=== PATIENT | female | born 1945 | race Hispanic/Latino ===

== ENCOUNTER 2016-12-22 10:53 | Day surgery (SDC) | payer MEDICARE, MEDICAID ==
[2016-12-20 12:12] VITALS: BMI 28.5
[2016-12-22] MEDS ORDERED: Propofol 10 mg/ml Inj (20 ML) ONE (11:27)
[2016-12-22] MEDS ORDERED: Succinylcholine 200 mg/10 ml Inj IV ONE (11:27)
[2016-12-22] MEDS ORDERED: Lactated Ringer's 1,000 ML IV SCH (12:15)
[2016-12-22 13:17] VITALS: BP 138/67; PULSE 77; RESP 20; TEMP 98.1; O2SAT 97
== END 2016-12-22 13:50 ==
LOC: SDS 10:53
PROVIDERS: ATTEND Psychiatry & Neurology Addiction Medicine
DX: F32.89 Other specified depressive episodes (principal)
CPT/HCPCS: 90870; J0330; J2704; J7120

== ENCOUNTER 2017-03-30 11:27 | Day surgery (SDC) | payer MEDICARE, MEDICAID ==
[2016-12-20 12:12] VITALS: BMI 28.5
[2017-03-30] MEDS ORDERED: Lactated Ringer's 1,000 ML IV SCH (11:42)
[2017-03-30] MEDS ORDERED: Propofol 10 mg/ml Inj (20 ML) ONE (12:06)
[2017-03-30] MEDS ORDERED: Succinylcholine 200 mg/10 ml Inj IV ONE (12:06)
[2017-03-30 13:28] VITALS: BP 147/76; PULSE 75; RESP 18; TEMP 97.7; O2SAT 96
== END 2017-03-30 14:20 ==
LOC: SDS 11:27
PROVIDERS: ATTEND Psychiatry & Neurology Addiction Medicine
DX: F32.89 Other specified depressive episodes (principal)
CPT/HCPCS: 90870; J0330; J2704; J7120 ×2

== ENCOUNTER 2017-08-17 10:37 | Day surgery (SDC) | payer MEDICARE, MEDICAID ==
[2016-12-20 12:12] VITALS: BMI 28.5
[2017-08-17 11:15] VITALS: RESP 18
[2017-08-17] MEDS ORDERED: Propofol 10 mg/ml Inj (20 ML) ONE (11:55)
[2017-08-17] MEDS ORDERED: Succinylcholine 200 mg/10 ml Inj IV ONE (12:13)
[2017-08-17] MEDS ORDERED: Lactated Ringer's 1,000 ML IV SCH (12:30)
[2017-08-17 13:02] VITALS: TEMP 98.4; O2SAT 97
[2017-08-17 14:03] VITALS: BP 133/72; PULSE 93
== END 2017-08-17 13:50 ==
LOC: SDS 10:37
PROVIDERS: ATTEND Psychiatry & Neurology Addiction Medicine
DX: F31.9 Bipolar disorder, unspecified (principal); F41.0 Panic disorder [episodic paroxysmal anxiety]
CPT/HCPCS: 90870; J0330; J2704; J7120

== ENCOUNTER 2018-01-11 09:44 | Day surgery (SDC) | payer MEDICARE, MEDICAID ==
[2018-01-05 08:15] VITALS: BMI 28.1
[2018-01-11] MEDS ORDERED: Succinylcholine 200 mg/10 ml Inj IV ONE (13:02)
[2018-01-11] MEDS ORDERED: Propofol 10 mg/ml Inj (20 ML) ONE (13:02)
[2018-01-11] MEDS ORDERED: Lactated Ringer's 1,000 ML IV SCH (13:45)
[2018-01-11 13:48] VITALS: TEMP 98
[2018-01-11 14:33] VITALS: RESP 20
[2018-01-11 14:52] VITALS: BP 115/61; PULSE 79; O2SAT 94
== END 2018-01-11 15:30 | disposition home or self-care (01) ==
LOC: SDS 09:44
PROVIDERS: ATTEND Psychiatry & Neurology Addiction Medicine
DX: F33.1 Major depressive disorder, recurrent, moderate (principal); G62.9 Polyneuropathy, unspecified; Z87.01 Personal history of pneumonia (recurrent)
CPT/HCPCS: 90870; J0330; J2704; J7120

== ENCOUNTER 2018-04-12 10:48 | Day surgery (SDC) | payer MEDICARE, MEDICAID ==
[2018-04-12 11:22] VITALS: BMI 28.3
[2018-04-12] MEDS ORDERED: Succinylcholine 200 mg/10 ml Inj IV ONE (12:10)
[2018-04-12] MEDS ORDERED: Propofol 10 mg/ml Inj (20 ML) ONE (12:10)
[2018-04-12] MEDS ORDERED: Lactated Ringer's 1,000 ML IV SCH (12:45)
[2018-04-12 13:34] VITALS: TEMP 98.5
[2018-04-12 14:23] VITALS: BP 132/71; PULSE 95; RESP 18; O2SAT 95
== END 2018-04-12 14:25 ==
LOC: SDS 10:48
PROVIDERS: ATTEND Psychiatry & Neurology Addiction Medicine
DX: F33.1 Major depressive disorder, recurrent, moderate (principal)
CPT/HCPCS: 90870; J0330; J2704; J7120 ×2

== ENCOUNTER 2018-07-26 10:55 | Day surgery (SDC) | payer MEDICARE, MEDICAID ==
[2018-07-13 09:56] VITALS: BMI 28.1
[2018-07-26] MEDS ORDERED: Lactated Ringer's 1,000 ML IV SCH (11:30)
[2018-07-26] MEDS ORDERED: Propofol 10 mg/ml Inj (20 ML) ONE (11:52)
[2018-07-26] MEDS ORDERED: Succinylcholine 200 mg/10 ml Inj IV ONE (12:06)
[2018-07-26 12:54] VITALS: RESP 18
[2018-07-26 13:06] VITALS: BP 133/71; PULSE 82; TEMP 97.5; O2SAT 96
== END 2018-07-26 14:00 | disposition home or self-care (01) ==
LOC: SDS 10:55
PROVIDERS: ATTEND Psychiatry & Neurology Addiction Medicine
DX: F33.1 Major depressive disorder, recurrent, moderate (principal); I10 Essential (primary) hypertension
CPT/HCPCS: 90870; J0330; J2704; J3010; J7120

== ENCOUNTER 2018-10-25 09:21 | Day surgery (SDC) | payer MEDICARE, MEDICAID ==
[2018-07-13 09:56] VITALS: BMI 28.1
[2018-10-25] MEDS ORDERED: Propofol 10 mg/ml Inj (20 ML) ONE (11:59)
[2018-10-25] MEDS ORDERED: Succinylcholine 200 mg/10 ml Inj IV ONE (12:01)
[2018-10-25] MEDS ORDERED: Sodium Chloride 0.9% 1,000 ML IV SCH (12:30)
[2018-10-25 13:19] VITALS: RESP 18; O2SAT 99
[2018-10-25 15:52] VITALS: BP 135/65; PULSE 92; TEMP 98.1
== END 2018-10-25 14:30 ==
LOC: SDS 09:21
PROVIDERS: ATTEND Psychiatry & Neurology Addiction Medicine
DX: F32.89 Other specified depressive episodes (principal); I10 Essential (primary) hypertension
CPT/HCPCS: 90870; J0330; J2001; J2704; J7030

== ENCOUNTER 2019-01-17 11:05 | Day surgery (SDC) | payer MEDICARE, MEDICAID ==
[2019-01-11 13:48] VITALS: BMI 28.5
[2019-01-17] MEDS ORDERED: Succinylcholine 200 mg/10 ml Inj IV ONE (13:21)
[2019-01-17] MEDS ORDERED: Propofol 10 mg/ml Inj (20 ML) ONE (13:21)
[2019-01-17] MEDS ORDERED: Sodium Chloride 0.9% 1,000 ML IV SCH (14:00)
[2019-01-17 14:40] VITALS: PULSE 85; RESP 20; TEMP 97; O2SAT 95
[2019-01-17 15:07] VITALS: BP 127/74
== END 2019-01-17 15:00 | disposition home or self-care (01) ==
LOC: SDS 11:05
PROVIDERS: ATTEND Psychiatry & Neurology Addiction Medicine
DX: F32.89 Other specified depressive episodes (principal); G40.909 Epilepsy, unspecified, not intractable, without status epilepticus
CPT/HCPCS: 90870; J0330; J2704; J7030